=== PATIENT | female | born 1970 | race Caucasian/White ===

== ENCOUNTER 2018-05-03 10:32 | Emergency (ER) | payer OTHER ==
[2018-05-03] MEDS ORDERED: NA CHLORIDE 0.9% 1,000 ML ONE (10:52)
[2018-05-03] MEDS ORDERED: ONDANSETRON 4 MG/2 ML VIAL ONE (11:07)
[2018-05-03 11:45] LABS: Urine Bacteria 20-50 /HPF (<20); Urine Culture Reflex Order REFLEXED
[2018-05-03 11:46] LABS: Urine Blood 2+ (NEG); Urine Glucose NEGATIVE (NEG); Urine Protein 1+ (NEG)
[2018-05-03 11:50] LABS: Absolute Lymphocytes (CBC) 0.9 K/uL (0.7-4.9); Absolute Monocytes 0.6 K/uL (0.1-1.3); Absolute Neutrophil 6.2 K/uL (1.8-8.0); Basophils % 0.6 % (0-1.3); Eosinophils % 0.4 % (0-4.4); Hematocrit 40.3 % (36.0-45.0); Lymphocytes % 11.5 % (15.3-44.8); MCV 93.7 fL (80-100); MPV 9.8 fL (7.6-11.3); RBC Red Blood Cell Count 4.29 M/uL (3.86-4.86)
[2018-05-03 12:12] LABS: Potassium 3.7 mEq/L (3.6-5.0)
[2018-05-03 12:18] LABS: Albumin 4.1 g/dL (3.2-5.5); Bilirubin Direct 0.1 mg/dL (0-0.2); Bilirubin Total 0.5 mg/dL (0.3-1.2); Protein, Total 7.6 g/dL (6.0-8.3)
--- NOTE | 2018-05-03 12:58 | RAD REPORT ---
EXAM DESCRIPTION: CTAbdomen Pelvis W Contrast - 05/03/2018 12:48 pm CLINICAL HISTORY: Abdominal pain. ABD PAIN COMPARISON: CTSTONE PROTOCOL dated 08/11/2015; ABDOMEN 1 VIEW KUB dated 08/03/2015 TECHNIQUE: Biphasic CT imaging of the abdomen and pelvis was performed with 100 ml non-ionic IV cont rast. All CT scans are performed using dose optimization technique as appropriate and may include automated exposure control or mA/KV adjustment according to patient size. FINDINGS: The lung bases are clear. The liver, spleen, pancreas, adrenal glands and kidneys are within normal limits. No bowel obstruction, free air, free fluid or abscess. Evidence of previous right hemicolectomy noted . The appendix appears surgically absent. Moderate fecal retention in the colon seen. No evidence of significant lymphadenopathy. No suspicious bony findings. Hysterectomy noted. Several prominent follicles are seen in the region o f the right ovary. IMPRESSION: No acute intra-abdominal or pelvic finding. Prominent fecal retention in the colon.
--- NOTE | 2018-05-03 13:10 | EDPHYS ---
Physician Documentation [facility] Name: Delmi Levy Age: 47 yrs Sex: Female : 1970 Arrival Date: 05/03/2018 Time: 10:35 Bed 13 Private MD: Hugo Licona ED Physician Isaac Davis HPI: 05/03 12:58 This 47 yrs old Female presents to ER via Ambulatory with complaints of david Abdominal Pain. 12:58 The patient presents with abdominal pain in the lower abdomen. Onset: The david symptoms/episode began/occurred 5 day(s) ago. The symptoms do not radiate. Associated signs and symptoms: Pertinent positives: constipation. The symptoms are described as crampy. Modifying factors: The symptoms are alleviated by nothing, the symptoms are aggravated by nothing. Severity of pain: At its worst the pain was moderate in the emergency department the pain is unchanged. The patient has not experienced similar symptoms in the past. 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 - Social history:: Smoking status: Patient/guardian denies using tobacco, Patient/guardian denies using alcohol. - Ebola Screening: : Patient negative for fever greater than or equal to 101.5 degrees Fahrenheit, and additional compatible Ebola Virus Disease symptoms Patient denies exposure to infectious person Patient denies travel to an Ebola-affected area in the 21 days before illness onset. - Family history:: not pertinent. ROS: 12:58 Constitutional: Negative for fever, chills, and weight loss, Eyes: Negative for injury, david pain, redness, and discharge, ENT: Negative for injury, pain, and discharge, Neck: Negative for injury, pain, and swelling, Cardiovascular: Negative for chest pain, palpitations, and edema, Respiratory: Negative for shortness of breath, cough, wheezing, and pleuritic chest pain, Back: Negative for injury and pain, : Negative for injury, bleeding, discharge, and swelling, MS/Extremity: Negative for injury and deformity, Skin: Negative for injury, rash, and discoloration, Neuro: Negative for headache, weakness, numbness, tingling, and seizure, Psych: Negative for depression, anxiety, suicide ideation, homicidal ideation, and hallucinations, Allergy/Immunology: Negative for hives, rash, and allergies, Endocrine: Negative for neck swelling, polydipsia, polyuria, polyphagia, and marked weight changes, Hematologic/Lymphatic: Negative for swollen nodes, abnormal bleeding, and unusual bruising. 12:58 Abdomen/GI: Positive for abdominal pain, nausea and vomiting, constipation, of the right lower quadrant and left lower quadrant. Exam: 12:58 Constitutional: This is a well developed, well nourished patient who is awake, alert, david and in no acute distress. Head/Face: Normocephalic, atraumatic. Eyes: Pupils equal round and reactive to light, extra-ocular motions intact. Lids and lashes normal. Conjunctiva and sclera are non-icteric and not injected. Cornea within normal limits. Periorbital areas with no swelling, redness, or edema. ENT: Nares patent. No nasal discharge, no septal abnormalities noted. Tympanic membranes are normal and external auditory canals are clear. Oropharynx with no redness, swelling, or masses, exudates, or evidence of obstruction, uvula midline. Mucous membranes moist. Neck: Trachea midline, no thyromegaly or masses palpated, and no cervical lymphadenopathy. Supple, full range of motion without nuchal rigidity, or vertebral point tenderness. No Meningismus. Chest/axilla: Normal chest wall appearance and motion. Nontender with no deformity. No lesions are appreciated. Cardiovascular: Regular rate and rhythm with a normal S1 and S2. No gallops, murmurs, or rubs. Normal PMI, no JVD. No pulse deficits. Respiratory: Lungs have equal breath sounds bilaterally, clear to auscultation and percussion. No rales, rhonchi or wheezes noted. No increased work of breathing, no retractions or nasal flaring. Back: No spinal tenderness. No costovertebral tenderness. Full range of motion. Female : Normal external genitalia. Skin: Warm, dry with normal turgor. Normal color with no rashes, no lesions, and no evidence of cellulitis. MS/ Extremity: Pulses equal, no cyanosis. Neurovascular intact. Full, normal range of motion. Neuro: Awake and alert, GCS 15, oriented to person, place, time, and situation. Cranial nerves II-XII grossly intact. Motor strength 5/5 in all extremities. Sensory grossly intact. Cerebellar exam normal. Normal gait. Psych: Awake, alert, with orientation to person, place and time. Behavior, mood, and affect are within normal limits. 12:58 Abdomen/GI: Inspection: abdomen appears normal, Bowel sounds: normal, Palpation: mild abdominal tenderness, moderate abdominal tenderness, in the right lower quadrant and left lower quadrant. Vital Signs: 10:39 BP 124 / 76; Pulse 99; Resp 18; Temp 98.0(O); Pulse Ox 96% on R/A; Weight 81.65 kg; hj Height 5 ft. 6 in. (167.64 cm); Pain 8/10; 11:22 BP 115 / 68; Pulse 70; Resp 18; Pulse Ox 98% on R/A; tw2 12:31 BP 106 / 57; Pulse 68; Resp 17; Pulse Ox 100% on R/A; tw2 13:16 BP 111 / 63; Pulse 77; Resp 17; Pulse Ox 100% on R/A; tw2 10:39 Body Mass Index 29.05 (81.65 kg, 167.64 cm) MDM: 10:44 Patient medically screened. [facility] 05/03 10:48 Order name: Amylase, Serum; Complete Time: 12:57 05/03 10:48 Order name: Basic Metabolic Panel; Complete Time: 12:57 05/03 10:48 Order name: CBC with Diff; Complete Time: 12:57 05/03 10:48 Order name: Creatinine for Radiology; Complete Time: 12:57 05/03 10:48 Order name: Hepatic Function; Complete Time: 12:57 05/03 10:48 Order name: Lipase; Complete Time: 12:57 05/03 10:48 Order name: Urine Microscopic Only; Complete Time: 12:57 05/03 10:48 Order name: CT Abd/Pelvis - W/Contrast; Complete Time: 13:02 05/03 11:02 Order name: Urine Dipstick--Ancillary (enter results); Complete Time: 12:57 bd 05/03 11:02 Order name: Urine --Ancillary (enter results); Complete Time: 12:57 05/03 11:46 Order name: Urine Culture [facility] 05/03 10:41 Order name: Urine Dipstick-Ancillary (obtain specimen); Complete Time: 10:49 hj 05/03 10:48 Order name: IV Saline Lock; Complete Time: 11:04 david 05/03 10:48 Order name: Labs collected and sent; Complete Time: 11:04 [facility] Administered Medications: 10:55 Drug: NS 0.9% 1000 ml Route: IV; Rate: 1 bolus; Site: right antecubital; tw2 13:13 Follow up: Response: No adverse reaction; IV Status: Order to discontinue infusion; IV tw2 Intake: 600ml 11:14 Drug: Zofran 4 mg Route: IVP; Site: right antecubital; tw2 13:18 Follow up: Response: No adverse reaction tw2 13:13 Drug: Lactulose 30 grams Volume: 45 ml; Route: PO; tw2 13:18 Follow up: Response: No adverse reaction tw2 13:13 Drug: Dulcolax Suppository 10 mg Route: AR; tw2 13:18 Follow up: Response: No adverse reaction tw2 Disposition: 05/03/18 13:09 Discharged to Home. Impression: Abdominal tenderness, Constipation. - Condition is Stable. - Discharge Instructions: Abdominal Pain, Adult, Constipation, Adult, Constipation, Adult, [id number], Abdominal Pain, Adult, [id number]. - Prescriptions for Bentyl 20 mg Oral Tablet - take 1 tablet by ORAL route every 6 hours As needed; 20 tablet. Miralax 17 gram/dose Oral - take 1 packet by ORAL route once daily dilute powder in 8 ounces of water or juice; 20 packet. - Medication Reconciliation Form, Thank You Letter, Antibiotic Education, Prescription Opioid Use, Work release form form. - Follow up: Private Physician; When: 2 - 3 days; Reason: Recheck today's complaints, Continuance of care, Re-evaluation by your physician. - Problem is new. - Symptoms have improved. Signatures: Dispatcher [employer] [facility] Ryan, Isaac, MD MD david Francis, Marbin, RN RN hj Hilario, Yesy, RN RN tw2 Corrections: (The following items were deleted from the chart) 13:20 13:09 05/03/2018 13:09 Discharged to Home. Impression: Abdominal tenderness; tw2 Constipation. Condition is Stable. Forms are Medication Reconciliation Form, Thank You Letter, Antibiotic Education, Prescription Opioid Use. Follow up: Private Physician; When: 2 - 3 days; Reason: Recheck today's complaints, Continuance of care, Re-evaluation by your physician. Problem is new. Symptoms have improved. david
--- NOTE | 2018-05-03 13:10 | ER ---
Nurse's Notes [facility] Name: Delmi Levy Age: 47 yrs Sex: Female : 1970 Arrival Date: 05/03/2018 Time: 10:35 Bed 13 Private MD: Hugo Licona Diagnosis: Abdominal tenderness;Constipation Presentation: 05/03 10:35 Presenting complaint: Patient states: stomach has been cramping for about a week, hj denies diarrhea, reports nausea; denies fever and chills;pain is below the umbilicus; hx of kidney stones;. Transition of care: patient was not received from another setting of care. Onset of symptoms was May 03, 2018. Risk Assessment: Do you want to hurt yourself or someone else? Patient reports no desire to harm self or others. Initial Sepsis Screen: Does the patient meet any 2 criteria? No. Patient's initial sepsis screen is negative. Does the patient have a suspected source of infection? No. Patient's initial sepsis screen is negative. Care prior to arrival: None. 10:35 Method Of Arrival: Ambulatory 10:35 Acuity: CYNDY 3 hj Triage Assessment: 10:38 General: Appears in no apparent distress. uncomfortable, Behavior is calm, cooperative, hj appropriate for age. Pain: Complains of pain in abdomen. 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 - Social history:: Smoking status: Patient/guardian denies using tobacco, Patient/guardian denies using alcohol. - Ebola Screening: : Patient negative for fever greater than or equal to 101.5 degrees Fahrenheit, and additional compatible Ebola Virus Disease symptoms Patient denies exposure to infectious person Patient denies travel to an Ebola-affected area in the 21 days before illness onset. - Family history:: not pertinent. Screenin:40 Abuse screen: Denies threats or abuse. Denies injuries from another. Nutritional hj screening: No deficits noted. Tuberculosis screening: No symptoms or risk factors identified. Fall Risk None identified. Assessment: 10:45 General: Appears in no apparent distress. well groomed, Behavior is calm, cooperative, tw2 appropriate for age. Pain: Complains of pain in abdomen. Neuro: Level of Consciousness is awake, alert, obeys commands, Oriented to person, place, time, situation. Cardiovascular: Denies chest pain, shortness of breath, Heart tones S1 S2 Capillary refill < 3 seconds Patient's skin is warm and dry. Respiratory: Airway is patent Respiratory effort is even, unlabored, Respiratory pattern is regular, symmetrical, Breath sounds are clear bilaterally. GI: Abdomen is round non-distended, Bowel sounds present X 4 quads. Reports nausea. : No signs and/or symptoms were reported regarding the genitourinary system. EENT: No signs and/or symptoms were reported regarding the EENT system. Derm: No signs and/or symptoms reported regarding the dermatologic system. Skin is intact, is healthy with good turgor, Skin is dry, Skin temperature is warm. Musculoskeletal: Range of motion: intact in all extremities. 11:22 Reassessment: Patient appears in no apparent distress at this time. Patient and/or tw2 family updated on plan of care and expected duration. Pain level reassessed. Patient is alert, oriented x 3, equal unlabored respirations, skin warm/dry/pink. 12:30 Reassessment: Patient appears in no apparent distress at this time. Patient and/or tw2 family updated on plan of care and expected duration. Pain level reassessed. Patient is alert, oriented x 3, equal unlabored respirations, skin warm/dry/pink. 13:17 Reassessment: Patient appears in no apparent distress at this time. Patient and/or tw2 family updated on plan of care and expected duration. Pain level reassessed. Patient is alert/active/playful, equal unlabored respirations, skin warm/dry/pink. Vital Signs: 10:39 BP 124 / 76; Pulse 99; Resp 18; Temp 98.0(O); Pulse Ox 96% on R/A; Weight 81.65 kg; hj Height 5 ft. 6 in. (167.64 cm); Pain 8/10; 11:22 BP 115 / 68; Pulse 70; Resp 18; Pulse Ox 98% on R/A; tw2 12:31 BP 106 / 57; Pulse 68; Resp 17; Pulse Ox 100% on R/A; tw2 13:16 BP 111 / 63; Pulse 77; Resp 17; Pulse Ox 100% on R/A; tw2 10:39 Body Mass Index 29.05 (81.65 kg, 167.64 cm) ED Course: 10:35 Patient arrived in ED. mr 10:35 Hugo Licona MD is Private Physician. mr 10:37 Triage completed. hj 10:39 Arm band placed on left wrist. hj 10:41 Patient has correct armband on for positive identification. hj 10:43 Yesy Hilario RN is Primary Nurse. tw2 10:44 Isaac Davis MD is Attending Physician. david 12:[address] via wheelchair. kw1 12:[address] sw 12:49 CT Abd/Pelvis - W/Contrast In Process Unspecified. EDMS 13:17 No provider procedures requiring assistance completed. IV discontinued, intact, tw2 bleeding controlled, No redness/swelling at site. Pressure dressing applied. Administered Medications: 10:55 Drug: NS 0.9% 1000 ml Route: IV; Rate: 1 bolus; Site: right antecubital; tw2 13:13 Follow up: Response: No adverse reaction; IV Status: Order to discontinue infusion; IV tw2 Intake: 600ml 11:14 Drug: Zofran 4 mg Route: IVP; Site: right antecubital; tw2 13:18 Follow up: Response: No adverse reaction tw2 13:13 Drug: Lactulose 30 grams Volume: 45 ml; Route: PO; tw2 13:18 Follow up: Response: No adverse reaction tw2 13:13 Drug: Dulcolax Suppository 10 mg Route: OR; tw2 13:18 Follow up: Response: No adverse reaction tw2 Intake: 13:13 IV: 600ml; Total: 600ml. tw2 Outcome: 13:09 Discharge ordered by . david 13:17 Discharged to home ambulatory, with significant other. tw2 13:17 Condition: stable 13:17 Discharge instructions given to patient, significant other, Instructed on discharge instructions, follow up and referral plans. no drinking with medication, no driving heavy equipment, medication usage, Demonstrated understanding of instructions, follow-up care, medications, Prescriptions given X 2. 13:20 Patient left the ED. tw2 Signatures: Dispatcher [employer] EDIsaac Pressley MD MD cha Rivera, Maria Marcos, Marbin Guzman RN RN hj Yesy Hilario RN RN tw2 Trish Lugo kw1 Corrections: (The following items were deleted from the chart) 10:41 10:39 Pulse 99bpm; Resp 18bpm; Pulse Ox 100% RA; Temp 98.0F Oral; 81.65 kg; Height 5 hj ft. 6 in.; BMI: 29.0; Pain 8/10; hj
[2018-05-03] MEDS ORDERED: BISACODYL 10 MG RECTAL SUPP ONE (13:13)
[2018-05-03] MEDS ORDERED: LACTULOSE 20 GM/30 ML UCUP ONE (13:13)
== END 2018-05-03 13:20 | disposition home or self-care (01) ==
LOC: ER 10:32
DX: K59.00 Constipation, unspecified (principal); F41.9 Anxiety disorder, unspecified
CPT/HCPCS: 36415; 74177; 80048; 80076; 81003; 81015; 81025; 82150; 83690; 85025; 87086; 87088; 96361; 96374; 99284; J2405; J7030; Q9967

== ENCOUNTER 2018-11-06 11:16 | Emergency (ER) | payer OTHER ==
--- OUTSIDE RECORDS SUMMARY | 2018-11-06 11:18 | XMS REPORT ---
:1970 [facility] Address [address] [place] [id number] Care Team Providers Name Role Phone Unavailable Unavailable Unavailable Problems This patient has no known problems. Allergies, Adverse Reactions, Alerts This patient has no known allergies or adverse reactions. Medications This patient has no known medications.
[2018-11-06] MEDS ORDERED: METHYLPREDNISOLONE 125 MG INJ ONE (12:23)
[2018-11-06] MEDS ORDERED: KETOROLAC 30 MG/ML INJ ONE (12:23)
[2018-11-06] MEDS ORDERED: FENTANYL CITR 100 MCG/2 ML ONE (14:06)
[2018-11-06] MEDS ORDERED: ONDANSETRON 4 MG (ODT) TAB ONE (14:09)
--- NOTE | 2018-11-06 14:27 | EDPHYS ---
Physician Documentation [facility] Name: Delmi Levy Age: 48 yrs Sex: Female : 1970 Arrival Date: 11/06/2018 Time: 11:18 Bed 19 Private MD: Hugo Licona ED Physician Zbigniew Eaton HPI: 11/06 12:32 This 48 yrs old Female presents to ER via Ambulatory with complaints of Left pm1 lower back pain. 12:32 The patient presents with pain that is acute, with no known mechanism of injury. The pm1 symptoms are located in the left low back. Onset: The symptoms/episode began/occurred 2 week(s) ago, worse over the past 4 days. The pain radiates to the left lower leg. Associated signs and symptoms: Pertinent negatives: abdominal pain, chest pain, fever, headache, nausea, numbness, tingling, vomiting, weakness. The problem was sustained from unknown cause. Modifying factors: The patient symptoms are alleviated by pressure applied to left lower back by , and standing, the patient symptoms are aggravated by movement. Severity of symptoms: in the emergency department the symptoms are actually worse. The patient has not experienced similar symptoms in the past. Patient seen recently by PCP and diagnosed with sciatic pain. She was prescribed norco, flexeril, and medrol dosepak. Patient on second day of medications. 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 - Social history:: Smoking status: Patient/guardian denies using tobacco. - Ebola Screening: : No symptoms or risks identified at this time. ROS: 12:32 Constitutional: Negative for fever, chills, and weight loss, Eyes: Negative for injury, pm1 pain, redness, and discharge, ENT: Negative for injury, pain, and discharge, Neck: Negative for injury, pain, and swelling, Cardiovascular: Negative for chest pain, palpitations, and edema, Respiratory: Negative for shortness of breath, cough, wheezing, and pleuritic chest pain, Abdomen/GI: Negative for abdominal pain, nausea, vomiting, diarrhea, and constipation. 12:32 : Negative for injury, bleeding, discharge, and swelling, MS/Extremity: Negative for injury and deformity, Skin: Negative for injury, rash, and discoloration, Neuro: Negative for headache, weakness, numbness, tingling, and seizure. 12:32 Back: Positive for of the left low back, radiation to left lower leg, Negative for decreased range of motion. Exam: 12:32 Constitutional: This is a well developed, well nourished patient who is awake, alert, pm1 and in no acute distress. Head/Face: Normocephalic, atraumatic. Neck: Trachea midline, no thyromegaly or masses palpated, and no cervical lymphadenopathy. Supple, full range of motion without nuchal rigidity, or vertebral point tenderness. No Meningismus. Chest/axilla: Normal chest wall appearance and motion. Nontender with no deformity. No lesions are appreciated. Cardiovascular: Regular rate and rhythm with a normal S1 and S2. No gallops, murmurs, or rubs. Normal PMI, no JVD. No pulse deficits. Respiratory: Lungs have equal breath sounds bilaterally, clear to auscultation and percussion. No rales, rhonchi or wheezes noted. No increased work of breathing, no retractions or nasal flaring. Abdomen/GI: Soft, non-tender, with normal bowel sounds. No distension or tympany. No guarding or rebound. No evidence of tenderness throughout. 12:32 Skin: Warm, dry with normal turgor. Normal color with no rashes, no lesions, and no evidence of cellulitis. MS/ Extremity: Pulses equal, no cyanosis. Neurovascular intact. Full, normal range of motion. 12:32 Back: pain, of the focal point to left lower back. Palpation reproduces radiated pain down left lower leg, normal spinal alignment noted, vertebral tenderness, is not appreciated. 12:32 Neuro: Orientation: is normal, Motor: is normal, moves all fours, strength is 5/5 in all extremities. Vital Signs: 11:39 BP 99 / 74; Pulse 122; Resp 16; Temp 97.8; Pulse Ox 100% on R/A; Pain 10/10; hb 13:36 BP 103 / 74; Pulse 74; Resp 20; Pulse Ox 96% on R/A; aj 15:04 BP 99 / 54; Pulse 84; Resp 18; Pulse Ox 99% on R/A; aj MDM: 11:59 Patient medically screened. pm1 12:45 Data reviewed: vital signs. Data interpreted: Pulse oximetry: on room air is 100 %. pm1 Interpretation: normal. 15:00 Counseling: I had a detailed discussion with the patient and/or guardian regarding: the pm1 historical points, exam findings, and any diagnostic results supporting the discharge/admit diagnosis, the need for outpatient follow up, a family practitioner, to return to the emergency department if symptoms worsen or persist or if there are any questions or concerns that arise at home. Administered Medications: 12:20 Drug: SOLU-Medrol 125 mg Route: IM; Site: right gluteus; aj 15:06 Follow up: Response: Pain is decreased aj 12:20 Drug: TORadol 60 mg Route: IM; Site: left gluteus; aj 15:06 Follow up: Response: Pain is decreased aj 13:45 CANCELLED (Physician Discretion): morphine 4 mg IVP once pm1 14:01 Drug: Zofran 4 mg Route: PO; aj 15:07 Follow up: Response: Pain is decreased aj 14:01 Drug: fentaNYL (PF) 25 mcg Route: IM; Site: left deltoid; aj 15:07 Follow up: Response: Pain is decreased aj Disposition: 18:39 Co-signature as Attending Physician, Zbigniew Eaton MD patient was evaluated by myself. ps1 Osteopathic exam performed in the supine and prone position. Patient had SI joint dysfunction on the left. Lumbar compensatory changes L3-5 SLRR. Thoracic changes T5-9 SRLL. Paraspinal spasm was appreciated. HVLA performed to SI, Lumbar and thoracic spine. Patient stated pain improved with increased ROM. Stable. . Disposition: 11/06/18 14:27 Discharged to Home. Impression: Sciatica, left side. - Condition is Stable. - Discharge Instructions: Sciatica, Back Exercises, [id number]. - Prescriptions for Robaxin 500 mg Oral Tablet - take 2 tablet by ORAL route every 6 hours As needed; 40 tablet. - Medication Reconciliation Form, Thank You Letter, Prescription Opioid Use form. - Follow up: Emergency Department; When: As needed; Reason: Worsening of condition. Follow up: Private Physician; When: 2 - 3 days; Reason: Recheck today's complaints, Continuance of care, Re-evaluation by your physician. - Problem is new. - Symptoms have improved. Signatures: Sharon Pulido RN RN Tong Millan, GARMENT LOOPER GARMENT LOOPER pm1 Yara Rios RN RN Zbigniew Eaton MD MD ps1 Corrections: (The following items were deleted from the chart) 12:36 11:41 Allergies: No Known Allergies; [facility] 13:45 13:37 morphine 4 mg IVP once ordered. pm1 pm1 15:07 14:27 11/06/2018 14:27 Discharged to Home. Impression: Sciatica, left side. Condition aj is Stable. Forms are Medication Reconciliation Form, Thank You Letter, Antibiotic Education, Prescription Opioid Use. Follow up: Emergency Department; When: As needed; Reason: Worsening of condition. Follow up: Private Physician; When: 2 - 3 days; Reason: Recheck today's complaints, Continuance of care, Re-evaluation by your physician. Problem is new. Symptoms have improved. pm1 15:27 12:45 Counseling: I had a detailed discussion with the patient and/or guardian pm1 regarding: pm1
--- NOTE | 2018-11-06 14:27 | ER ---
Nurse's Notes [facility] Name: Delmi Levy Age: 48 yrs Sex: Female : 1970 Arrival Date: 11/06/2018 Time: 11:18 Bed 19 Private MD: Hugo Licona Diagnosis: Sciatica, left side Presentation: 11/06 11:38 Presenting complaint: Patient states: Left low back pain that radiates to left leg x 2 hb weeks, worse over last 4 days. Recently seen by PCP for same s/s, on Medrol Dosepak, Flasher and Flexeril for pain. Transition of care: patient was not received from another setting of care. Onset of symptoms is unknown. Risk Assessment: Do you want to hurt yourself or someone else? Patient reports no desire to harm self or others. Initial Sepsis Screen: Does the patient meet any 2 criteria? No. Patient's initial sepsis screen is negative. Does the patient have a suspected source of infection? No. Patient's initial sepsis screen is negative. Care prior to arrival: None. 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 - Social history:: Smoking status: Patient/guardian denies using tobacco. - Ebola Screening: : No symptoms or risks identified at this time. Screenin:21 Abuse screen: Denies threats or abuse. Denies injuries from another. Nutritional aj screening: No deficits noted. Tuberculosis screening: No symptoms or risk factors identified. Fall Risk None identified. Assessment: 12:21 General: Appears in no apparent distress. uncomfortable, Behavior is agitated. Pain: aj Complains of pain in buttocks. Neuro: Level of Consciousness is awake, alert, obeys commands, Oriented to person, place, time, situation, Appropriate for age. Respiratory: Airway is patent Respiratory effort is even, unlabored, Respiratory pattern is regular, symmetrical. Derm: Skin is intact, is healthy with good turgor, Skin is pink, warm \T\ dry. normal. Musculoskeletal: Reports pain in buttocks. 13:00 Reassessment: Patient and/or family updated on plan of care and expected duration. Pain aj level reassessed. Patient is alert, oriented x 3, equal unlabored respirations, skin warm/dry/pink. Patient is resting comfortably at this time. Will continue to monitor. 13:40 Reassessment: Patient appears in no apparent distress at this time. Patient and/or aj family updated on plan of care and expected duration. Pain level reassessed. Patient is alert, oriented x 3, equal unlabored respirations, skin warm/dry/pink. Patient laying in bed on right side. Reports decrease in pain. Patient noted to be resting with eye closed and in NAD upon my entry to the room. Patient then opened eyes and reported that she has pain when she moves but has had some relief as she is now able to get onto bed. 15:00 Reassessment: Patient appears in no apparent distress at this time. Patient and/or aj family updated on plan of care and expected duration. Pain level reassessed. Patient is alert, oriented x 3, equal unlabored respirations, skin warm/dry/pink. Patient ambulated to restroom with steady gait. Vital Signs: 11:39 BP 99 / 74; Pulse 122; Resp 16; Temp 97.8; Pulse Ox 100% on R/A; Pain 10/10; hb 13:36 BP 103 / 74; Pulse 74; Resp 20; Pulse Ox 96% on R/A; aj 15:04 BP 99 / 54; Pulse 84; Resp 18; Pulse Ox 99% on R/A; aj ED Course: 11:18 Patient arrived in ED. mr 11:19 Hugo Licona MD is Private Physician. mr 11:39 Triage completed. hb 11:40 Arm band placed on. hb 11:54 Sharon Pulido, BRITTNEY is Primary Nurse. aj 11:58 Tong Millan NP is PHCP. pm1 11:58 Zbigniew Eaton MD is Attending Physician. pm1 12:21 Patient has correct armband on for positive identification. aj 12:21 No provider procedures requiring assistance completed. aj 15:05 Patient did not have IV access during this emergency room visit. aj Administered Medications: 12:20 Drug: SOLU-Medrol 125 mg Route: IM; Site: right gluteus; aj 15: Follow up: Response: Pain is decreased aj 12:20 Drug: TORadol 60 mg Route: IM; Site: left gluteus; aj 15: Follow up: Response: Pain is decreased aj 13:45 CANCELLED (Physician Discretion): morphine 4 mg IVP once pm1 14:01 Drug: Zofran 4 mg Route: PO; aj 15: Follow up: Response: Pain is decreased aj 14: Drug: fentaNYL (PF) 25 mcg Route: IM; Site: left deltoid; aj 15: Follow up: Response: Pain is decreased aj Outcome: 14:27 Discharge ordered by MD. pm1 15:05 Discharged to home ambulatory, with family. aj 15: Discharge instructions given to patient, significant other, Instructed on discharge instructions, follow up and referral plans. medication usage, Demonstrated understanding of instructions, follow-up care, medications, Prescriptions given X 1. 15:06 Condition: good aj 15:07 Patient left the ED. aj Signatures: Sharon Pulido, RN RN Leonora Machado mr YanaTong, YARD JACKER YARD JACKER pm1 Yaar Rios, BRITTNEY RN hb Corrections: (The following items were deleted from the chart) 12:36 11:41 Allergies: No Known Allergies; hb aj 15:04 15:04 BP 104 / 71; Pulse 84bpm; Resp 18bpm; Pulse Ox 99% RA; aj aj
== END 2018-11-06 15:07 | disposition home or self-care (01) ==
LOC: ER 11:16
DX: M54.32 Sciatica, left side (principal); F41.9 Anxiety disorder, unspecified; Z79.899 Other long term (current) drug therapy
CPT/HCPCS: 96372; 99283; J2930; J3010

== ENCOUNTER → 2019-01-28 | Day surgery (SDC) | payer OTHER ==
--- OUTSIDE RECORDS SUMMARY | 2019-01-28 09:44 | XMS REPORT | Clinical Summary ---
:1970 Author Organization [facility] Address [address] [place] [address] Care Team Providers Name Role Phone Hugo Licona MD Primary Care Provider Allergies Active Allergy Reactions Severity Noted Date Comments Promethazine Other (See Comments) 12/01/2018 SKIN CRAWL Medications Medication Sig Dispensed Refills Start Date End Date Status zolpidem (AMBIEN) 10 Take 1 tablet by 5 10/31/2018 Active mg tablet mouth as needed. ALPRAZolam (XANAX) 1 Take 1 tablet by 5 10/31/2018 Active MG tablet mouth as needed. HYDROcodone-acetaminop Take 1 tablet by 0 11/19/2018 Active hen (NORCO) 10-325 mg mouth as needed. per tablet docusate sodium Take by mouth. 0 Active (COLACE ORAL) Active Problems No known active problems Encounters Date Type Specialty Care Team Description 12/17/2018 Hospital Encounter Procedural Agustin Salter Cardiology MD [place] 12/17/2018 Transcribe Orders Access Agustin Salter Lumbar stenosis with MD [place] neurogenic claudication (Primary Dx) 12/02/2018 Anesthesia Event General Surgery Francine Kan MD 12/02/2018 Surgery General Surgery Lorraine Whitten, LUMBAR CYNDY LEFT L5-S1, S1 12/02/2018 Hospital Encounter General Surgery Lorraine Whitten MD 12/01/2018 Pre-Admit Testing Pre-Admission Lorraine Whitten, Appointment Testing MD after 01/27/2018 Family History Medical History Relation Name Comments Heart disease Father No Known Problems Mother Relation Name Status Comments Father Alive Mother Alive Social History Tobacco Use Types Packs/Day Years Used Date Never Smoker Smokeless Tobacco: Never Used Alcohol Use Drinks/Week oz/Week Comments Yes SOCIAL Sex Assigned at Date Recorded Not on file Job Start Date Occupation Industry Not on file Not on file Not on file Travel History Travel Start Travel End No recent travel history available. Last Filed Vital Signs Vital Sign Reading Time Taken Blood Pressure 121/60 12/02/2018 10:20 AM DATA ASSISTANT Pulse 89 12/02/2018 10:20 AM DATA ASSISTANT Temperature 36.6 C (97.9 F) 12/02/2018 10:05 AM DATA ASSISTANT Respiratory Rate 14 12/02/2018 10:20 AM DATA ASSISTANT Oxygen Saturation 99% 12/02/2018 10:20 AM DATA ASSISTANT Inhaled Oxygen Concentration - - Weight 83.9 kg (185 lb) 12/02/2018 8:57 AM DATA ASSISTANT Height 167.6 cm (5' 6") 12/02/2018 8:57 AM DATA ASSISTANT Body Mass Index 29.86 12/02/2018 8:57 AM DATA ASSISTANT Plan of Treatment Health Maintenance Due Date Last Done Comments CERVICAL CANCER SCREENING 1992 INFLUENZA VACCINE 06/16/2018 Procedures Procedure Name Priority Date/Time Associated Diagnosis Comments ECG 12-LEAD Routine 12/17/2018 4:09 Lumbar stenosis with Results for this PM DATA ASSISTANT neurogenic procedure are in claudication the results section. ESTIMATED GFR Routine 12/17/2018 3:20 Results for this PM DATA ASSISTANT procedure are in the results section. PARTIAL THROMBOPLASTIN Routine 12/17/2018 3:20 Stenosis of Results for this TIME (PTT) PM DATA ASSISTANT lumbosacral spine procedure are in the results section. BASIC METABOLIC PANEL Routine 12/17/2018 3:20 Stenosis of Results for this PM DATA ASSISTANT lumbosacral spine procedure are in the results section. PROTHROMBIN TIME WITH Routine 12/17/2018 3:20 Stenosis of Results for this INR PM DATA ASSISTANT lumbosacral spine procedure are in the results section. HC COMPLETE BLD COUNT Routine 12/17/2018 3:20 Stenosis of Results for this W/AUTO DIFF PM DATA ASSISTANT lumbosacral spine procedure are in the results section. OR FL < 1 HOUR Routine 12/02/2018 10:00 Results for this AM DATA ASSISTANT procedure are in the results section. after 01/27/2018 Results ECG 12 lead (12/17/2018 4:09 PM DATA ASSISTANT) Ventricular rate 81 [facility] Atrial rate 81 [facility] W[place] interval 142 [facility] QRSD interval 94 [facility] QT interval 372 [facility] QTC interval 432 [facility] P axis 1 60 [facility] QRS axis 1 22 [facility] M[facility] T wave axis 26 [facility] MUSE EKG impression Normal sinus rhythm-Possible Left atrial [facility] M[facility] enlargement-Incomplete right bundle branch block-Nonspecific T wave abnormality-Abnormal ECG-No previous ECGs available- Narrative Performed At Performing Organization Address City/[facility]/Zipcode Phone Number [facility] MUSE [address] [place] [address] Estimated GFR (12/17/2018 3:20 PM DATA ASSISTANT) Estimated GFR >=90 mL/min/1.73 m2 [facility] Comment: [facility] CatergoryUnitsInterpretation G1 >=90 Normal or high G2 60-89Mildly decreased [id number] to moderately decreased [id number] to severely decreased G4 15-29Severely decreased G5 <15Kidney failure The eGFR was calculated using the Chronic Kidney Disease Epidemiology Collaboration (CKD-EPI) equation. Interpretation is based on recommendations of the National Kidney Foundation-Kidney Disease Outcomes Quality Initiative (NKF-KDOQI) published in 2014. Specimen Plasma specimen Performing Organization Address City/[facility] Phone Number [facility] DEPARTMENT OF PATHOLOGY [id number] [place] [address] AND [facility] [id number] [place] [address] Partial thromboplastin time, activated (12/17/2018 3:20 PM DATA ASSISTANT) PTT 25.4 23.0 - 36.0 sec [facility] Comment: [facility] PTT therapeutic range for unfractionated heparin is 61.0-112.0 seconds which corresponds to Anti-Xa 0.3-0.7 U/ml. Specimen Blood Performing Organization Address City/[facility]/Zipcode Phone Number [facility] DEPARTMENT OF PATHOLOGY [address] [place] [address] AND [facility] [address] Prothrombin time with INR (12/17/2018 3:20 PM DATA ASSISTANT) Prothrombin time 12.7 11.5 - 14.5 sec [facility] INR 1.0 [facility] The International Normalized Ratio (INR) is a therapeutic monitoring tool for patients who are stable on oral anticoagulant therapy. An INR of 2.0-3.0 is suggested for deep vein thrombosis/pulmonary embolism. Specimen Blood Performing Organization Address City/State/Zipcode Phone Number [facility] DEPARTMENT OF PATHOLOGY [id number] [place] [address] CBC with platelet and differential (12/17/2018 3:20 PM DATA ASSISTANT) WBC 6.5 4.5 - 11.0 k/uL [facility] RBC 4.33 4.20 - 5.50 m/uL [facility] HGB 13.5 12.0 - 16.0 g/dL [facility] HCT 42.0 37.0 - 47.0 % [facility] MCV 97.0 82.0 - 100.0 fL [facility] MCH 31.2 27.0 - 34.0 pg [facility] MCHC 32.1 31.0 - 37.0 g/dL [facility] RDW - SD 44.1 37.0 - 55.0 fL [facility] MPV 10.7 6.9 - 11.0 fL [facility] Platelet count 276 150 - 400 K/uL [facility] Nucleated RBC 0.00 /100 WBC [facility] Neutrophils 68.3 39.0 - 69.0 % [facility] Lymphocytes 20.3 (L) 25.0 - 45.0 % [facility] Monocytes 10.0 0.0 - 10.0 % [facility] Eosinophils 0.5 0.0 - 5.0 % [facility] Basophils 0.6 0.0 - 1.0 % [facility] Immature granulocytes 0.3 0.0 - 1.0 % [facility] Specimen Blood Performing Organization Address City/[facility]/Zipcode Phone Number [facility] DEPARTMENT OF PATHOLOGY [address] [place] [address] Basic metabolic panel (12/17/2018 3:20 PM DATA ASSISTANT) Sodium 144 135 - 148 mEq/L [facility] Potassium 4.2 3.5 - 5.0 mEq/L [facility] Chloride 102 98 - 112 mEq/L [facility] CO2 32 (H) 24 - 31 mEq/L [facility] Anion gap 10@ANIO 7 - 15 mEq/L [facility] BUN 14 6 - 20 mg/dL [facility] Creatinine 0.71 0.50 - 0.90 mg/dL [facility] Glucose 95 65 - 99 mg/dL [facility] Calcium 10.7 (H) 8.3 - 10.2 mg/dL [facility] Specimen Plasma specimen Performing Organization Address City/[facility] Phone Number [facility] DEPARTMENT OF PATHOLOGY [address] [place] [address] [facility] [id number] [place] [address] HOSPITAL [place] < 1 Hour (12/02/2018 10:00 AM DATA ASSISTANT) Narrative Performed At EXAMINATION:OR FL 1 HOUR [facility] C-arm fluoroscopy was requested in OR. IMPRESSION: Separate operative report will be issued by the physician performing the procedure. [facility]-[id number] Procedure Note Hm Interface, Radiology Results Incoming - 12/13/2018 10:11 AM DATA ASSISTANT EXAMINATION: OR FL 1 HOUR C-arm fluoroscopy was requested in OR. IMPRESSION: Separate operative report will be issued by the physician performing the procedure. [facility]-[id number] Performing Organization Address City/[facility] Phone Number [facility] [address] [place] [address] after 01/27/2018 Insurance Payer Benefit Plan / Group Subscriber ID Type Phone Address [facility]/NETWORK xxxxxxxxxxx O Advance Directives Patient has advance care planning documents on file. For more information, please contact:[address] [address]
--- OUTSIDE RECORDS SUMMARY | 2019-01-28 09:44 | XMS REPORT ---
:1970 Author Organization [facility] Address [address] [place] [address] [address] Care Team Providers Name Role Phone DR PRINCESS PERSAUD Unavailable Unavailable Problems This patient has no known problems. Allergies, Adverse Reactions, Alerts This patient has no known allergies or adverse reactions. Medications This patient has no known medications. Encounters Start End Encounter Admission Attending Care Care Encounter Date/Time Date/Time Type Type Clinicians Facility Department ID 2018-12-23 2018-12-23 Outpatient DOMINIC BAEZ [facility] [id number] 10:01:00 17:53:00 PRINCESS
--- NOTE | 2019-01-28 11:23 | RAD REPORT ---
EXAM DESCRIPTION: US - Fine Needle Asp Breast Guide - 01/28/2019 11:07 am CLINICAL HISTORY: N63.11, Z80.3 COMPARISON: Mammogram and ultrasound imaging October 2018 FINDINGS: The patient presents for ultrasound-guided breast aspiration. The procedure, risks and alt ernatives were discussed with the patient in detail. After answering all questions, oral and written consent were obtained. Time out procedure was performed . The patient had no contraindicated allergy or medication history. Preliminary imaging again identified 2 cystic masses in the 9 o'clock right breast. The more superfic ial or anterior of the lesions measures 2.4 cm. Echogenic debris is seen moving within the lumen. The second deeper lesion is anechoic measuring 3.7 cm in maximum dimension. Patient indicated upper [address] pain as well as outer breast pain. In the 12 o'clock region patient has cysts present but these ar e much smaller. No suspicious finding seen on prior imaging or the current imaging. The skin was prepped and draped in the usual sterile fashion. Skin and deeper tissues were anesthe tized with 1 percent lidocaine. Under direct sonographic visualization, a 21 gauge needle was advance d and placed into the lumen of the smaller more superficial cyst. The mass was seen to fully collapse on aspiration. Cyst fluid had an opaque brown color typical for a benign cyst. The fluid was retaine d for cytology. Using the same skin access site a separate 21 gauge needle and syringe was advanced into the larger d eeper cyst. This cyst was seen to fully collapse on aspiration. A darker brown opaque fluid was obser christine. This fluid was also retained for cytology assessment. The patient tolerated the procedure well without complications. Post-procedure care and precaution in structions were given to the patient. IMPRESSION: Successful ultrasound-guided aspiration of 2 lateral right breast cysts. Fluid was retained in given to pathology for cytology assessment.
== END ==
LOC: FNA 09:28
PROVIDERS: ATTEND Obstetrics & Gynecology
DX: N60.01 Solitary cyst of right breast (principal); Z80.3 Family history of malignant neoplasm of breast
CPT/HCPCS: 10005; 76942; 88161